=== PATIENT | female | born 1995 | race Two or more races ===

== ENCOUNTER 2016-11-11 23:06 | Emergency (ER) | payer MEDICAID, OTHER ==
[~2016-11-11] VITALS: Ht 160 cm; Wt 66.0 kg
[2016-11-11] MEDS ORDERED: SODIUM CHLORIDE 0.9% 1,000 ML IV ONE (23:58)
[2016-11-11] MEDS ORDERED: ACETAMINOPHEN WITH CODEINE 300/30MG TABLET PO STA (23:58)
[2016-11-12 00:23] LABS: BASOPHILS % 0.1 % (0.0-2.0); CHLORIDE 104 mEq/L (98-107); EOSINOPHILS % 0.2 % (0.0-5.0); HEMATOCRIT. 39.1 % (36.0-48.0); HEMOGLOBIN. 13.5 g/dL (12.0-16.0); LYMPHOCYTES % 27.4 % (20.0-50.0); MEAN CORPUSCULAR VOLUME 87.1 fL (81.0-99.0); MEAN PLATELET VOLUME 8.3 fl (7.4-10.4); NEUTROPHILS % 65.3 % (40.0-76.0); PLATELET 315 x1000/uL (130-400); RED BLOOD CELL COUNT 4.49 mill/uL (4.2-5.4); RED CELL DISTRIBUTION WIDTH 12.8 % (11.6-14.6)
[2016-11-12 00:31] LABS: CARBON DIOXIDE 27 mEq/L (21-32)
[2016-11-12 03:18] VITALS: BP 104/63
== END 2016-11-12 03:46 | disposition home or self-care (01) ==
LOC: ER 23:07
DX: R51 Headache (principal); R42 Dizziness and giddiness; R55 Syncope and collapse
CPT/HCPCS: 36415; 70450; 80053; 85025; 96360; 99285; J7030; Z7610